=== PATIENT | male | born 1935 | race African-American/Black ===

== ENCOUNTER → 2017-05-09 | Outpatient (CLI) | payer MEDICARE, OTHER ==
[~2017-05-09] MED LIST: CAND4TAB3 PO; ERGO500017 PO; FEBU40TA PO; HYDR100T25 PO; NEBI20TA2 PO
== END | disposition home or self-care (01) ==
LOC: PETCFH 08:13
PROVIDERS: ATTEND Internal Medicine Hematology & Oncology
DX: C76.0 Malignant neoplasm of head, face and neck (principal); C78.7 Secondary malignant neoplasm of liver and intrahepatic bile duct
CPT/HCPCS: 78815; A9552

== ENCOUNTER → 2017-08-08 | Outpatient (CLI) | payer MEDICARE, OTHER | END | disposition home or self-care (01) | LOC: PETCFH 09:20 | PROVIDERS: ATTEND Internal Medicine | DX: C78.7 Secondary malignant neoplasm of liver and intrahepatic bile duct (principal); C76.0 Malignant neoplasm of head, face and neck | CPT/HCPCS: 78815; A9552 ==

== ENCOUNTER → 2017-12-02 | Outpatient (CLI) | payer MEDICARE, OTHER | LOC: PETCFH 07:24 | PROVIDERS: ATTEND Internal Medicine Hematology & Oncology | DX: C78.7 Secondary malignant neoplasm of liver and intrahepatic bile duct (principal); C76.0 Malignant neoplasm of head, face and neck | CPT/HCPCS: 78815; A9552 ==

== ENCOUNTER → 2018-02-20 | Outpatient (CLI) | payer MEDICARE, OTHER | END | disposition home or self-care (01) | LOC: PETCFH 08:10 | PROVIDERS: ATTEND Internal Medicine Hematology & Oncology | DX: K76.9 Liver disease, unspecified (principal); R93.0 Abnormal findings on diagnostic imaging of skull and head, not elsewhere classified; C76.0 Malignant neoplasm of head, face and neck | CPT/HCPCS: 78815; A9552 ==

== ENCOUNTER → 2018-05-10 | Outpatient (CLI) | payer MEDICARE, OTHER | LOC: PETCFH 08:26 | PROVIDERS: ATTEND Internal Medicine Hematology & Oncology | DX: C78.7 Secondary malignant neoplasm of liver and intrahepatic bile duct (principal); C76.0 Malignant neoplasm of head, face and neck | CPT/HCPCS: 78815; A9552 ==